=== PATIENT | male | born 1975 | race Caucasian/White ===

== ENCOUNTER 2016-09-05 06:51 | Day surgery (SDC) | payer SELFPAY ==
[~2016-09-05] VITALS: Ht 188 cm; Wt 85.0 kg
--- NOTE | 2016-09-08 13:37 | OR ---
ADMIT: 09/05/2016 RM/LOC: [facility] MR#: [id number] [address] [id number] YAQUELIN BLACK [address] [place] [address] Operative/Delivery Room Report SEX: M AGE: 41 : 1975 SURGERY DATE: 09/05/2016 SURGEON: Hugo Vines MD PREOPERATIVE DIAGNOSES: Radiculopathy from herniated nucleus pulposus on the left lumbar 4-5. POSTOPERATIVE DIAGNOSES: Radiculopathy from herniated nucleus pulposus on the left lumbar 4-5. PROCEDURE: Minimally invasive lumbar 4-5 microdiskectomy with direct visualization of decompressed elements with intraoperative use of fluoroscopy with physician interpretation of film. DESCRIPTION: After gaining informed consent, the patient was taken to the operative theater, placed under general endotracheal anesthesia in supine position and turned prone on a Shiv table. All pressure points purposely padded prior to performing the procedure. He was prepped and draped in usual sterile fashion. A time-out was utilized to ascertain the correct site and side of surgery as well as other pertinent patient historical information. Counts were obtained at beginning and end of the case with no change betwixt the two. Antibiotics were given within 1 hour of incision. Fluoroscope was brought in the field and the left 4-5 level was delineated. Incision was fashioned and the tubular retractor system was used to dilate through the musculature over top of the left L4-L5 level. Once this was docked into place, microscope was brought in the field and the rest case was done with microsurgical dissection technique. Various curettes, rongeurs, and a high-speed drill was used to fashion hemilaminotomy on the left at lumbar 4, 5 resecting ligamentum flavum, and visualizing tense thecal sac. This was very cautiously medialized and the posterior longitudinal ligament was visualized. This was incised and then a very large piece of extruded disk fragment was removed en bloc. A few smaller pieces were then removed with no further sign of disk material or compression. At this point, attention was then turned to gaining pristine hemostasis. Once this was completed, the ADMIT: 09/05/2016 RM/LOC: [facility] MR#: [id number] [id number] [facility] [address] [place] [id number] PEPEYAQUELIN WALKER [address] [place] [id number] Operative/Delivery Room Report SEX: M AGE: 41 : 1975 paraspinous musculature was loaded with 10 mL 0.5% Marcaine on each side and then the thoracodorsal fascia closed with simple interrupted 2-0 Vicryl and simple interrupted 2-0 Vicryl was used in the hypodermic tissue with 3-0 Stratafix on the skin. Steri-Strips placed after that. COMPLICATIONS: None. ESTIMATED BLOOD LOSS: Charted. SPECIMEN: Disk. DISPOSITION: Extubated and taken to postanesthesia care unit. Hugo Vines MD/ neel JOB #: [id number] CC: Hugo Vines, Attending Physician NO FAMILY PHYSICIAN, Family Physician
== END 2016-09-05 14:10 | disposition home or self-care (01) ==
LOC: SSS 06:51
PROC: 01NB0ZZ Release Lumbar Nerve, Open Approach (ICD-10-PCS; principal; 2016-09-05)
PROC: 0SB20ZZ Excision of Lumbar Vertebral Disc, Open Approach (ICD-10-PCS; principal; 2016-09-05)
DX: M51.16 Intervertebral disc disorders with radiculopathy, lumbar region (principal); Z79.891 Long term (current) use of opiate analgesic; Z79.899 Other long term (current) drug therapy